=== PATIENT | female | born 1980 | race Caucasian/White ===

== ENCOUNTER 2018-09-19 05:24 | Day surgery (SDC) | payer OTHER ==
[2018-09-18 12:50] VITALS: BMI 51.9
[2018-09-19] MEDS ORDERED: PROPOFOL 20 ML ONE (07:08)
[2018-09-19] MEDS ORDERED: MIDAZOLAM HCL 2 MG/2 ML SINGLE DOSE VIAL ONE (07:08)
[2018-09-19] MEDS ORDERED: ACETAMINOPHEN 325 MG TABLET (FP) PO PRN (08:06)
[2018-09-19] MEDS ORDERED: IBUPROFEN 400 MG TABLET (FP) PO PRN (08:06)
--- NOTE | 2018-09-19 08:06 | HP ---
History & Physical Update - History History: No Change - Physical Physical: No Change - Assessment Assessment: No Change - Plan Plan: No Change
[2018-09-19] MEDS ORDERED: LIDOCAINE HCL/PF 2% SDV 5ML VIAL ONE (09:02)
[2018-09-19] MEDS ORDERED: DEXAMETHASONE SOD PHOSPHATE 4 MG/1 ML VIAL ONE (09:02)
[2018-09-19] MEDS ORDERED: IODINE/POTASSIUM IODIDE 5%/10% 14 ML BOTTLE NR ONE (10:00)
[2018-09-19] MEDS ORDERED: FERRIC SUBSULFATE 500 ML BOTTLE TP ONE (10:00)
[2018-09-19] MEDS ORDERED: ONDANSETRON 4 MG/2 ML VIAL IVPUSH PRN (10:53)
[2018-09-19] MEDS ORDERED: oxyCODONE HCL 5 MG TABLET PO PRN (10:53)
[2018-09-19] MEDS ORDERED: LACTATED RINGERS SOLUTION 1,000 ML IV SCH (11:00)
--- NOTE | 2018-09-19 11:21 | OP ---
Operative Note - Note: Operative Date: 09/19/18 Pre-Operative Diagnosis: Cervical dysplasia. Retained IUD. HPV Operation: Hysteroscopic IUD Removal. Suction DC. LEEP Post-Operative Diagnosis: Same as Pre-op Anesthesia: General Estimated Blood Loss (mls): 50 Operative Report Dictated: Yes
[2018-09-19 15:17] VITALS: BP 127/69; PULSE 68; TEMP 97
--- NOTE | 2018-09-20 14:56 | PATH ---
Surgical Pathology Report Patient Name: ALEXIS NGUYEN [facility]. Rec. #: [id number] /Age/Gender: 1980 (Age: 38) / F Account: [id number] Location: [facility] Taken: 09/19/2018 Received: 09/19/2018 Reported: 09/20/2018 Physicians: Sabine Cunningham M.D. Specimen(s) Received A: IUD B: BX ECTO C: ENDOMETRIAL CURETTINGS Clinical History Cervical dysplasia, retained IUD Final Diagnosis A. IUD, REMOVAL: CONSISTENT WITH INTRAUTERINE DEVICE. GROSS EXAMINATION ONLY. B. ECTOCERVIX, BIOPSY: CERVICAL TISSUE, NEGATIVE FOR DYSPLASIA. C. ENDOMETRIAL CURETTINGS: PREDOMINANTLY BLOOD ADMIXED WITH FRAGMENTS OF ENDOMETRIAL POLYP. SEPARATE FRAGMENTS OF WEAKLY PROLIFERATIVE ENDOMETRIUM WITH FOCAL STROMAL BREAKDOWN. SEPARATE UNREMARKABLE ENDOCERVICAL TISSUE AND SQUAMOUS EPITHELIUM. Electronically Signed Vandana Mensah M.D. Gross Description A. Received in formalin labeled "IUD," is a 3.5 cm in length T. Shaped device with attached string, consistent with an IUD. No soft tissue is present. No sections are submitted, gross only. B. Received in formalin labeled "ecto," is a 2.3 x 1.2 x 0.5 cm pryor-pink, irregular, unoriented portion of soft tissue which is partially surfaced by a pryor-pink mucosa, consistent with a portion of cervix. There is no cervical os present. The specimen is serially sectioned and entirely and sequentially submitted in 3 cassettes. C. Received in formalin labeled "EMC," is a 12.0 x 10.0 x 0.8 cm aggregate of pryor-red soft tissue fragments admixed with blood clot. The formalin is filtered and the specimen is entirely submitted in 26 cassettes. DL/09/19/2018 saudi09/19/2018
--- NOTE | 2018-10-04 22:43 | OP ---
DATE OF OPERATION: 09/19/2018 PREOPERATIVE DIAGNOSIS: Cervical dysplasia, retained intrauterine device and loop electrosurgical excision procedure. POSTOPERATIVE DIAGNOSIS: Cervical dysplasia, retained intrauterine device and loop electrosurgical excision procedure. SURGEON: Sabine Cunningham M.D. ANESTHESIA: General. PROCEDURE: Patient was taken to operating room, placed in dorsal lithotomy position, prepped and draped in usual sterile fashion. Speculum placed in vagina. Anterior lip of cervix grasped with single-toothed tenaculum. The hysteroscope was then inserted, operative hysteroscope and hysteroscopic IUD removal was performed followed by suction D and C. After visualization revealed some adhesions, a lysis of adhesions was done and suction D and C was performed. LEEP excision was then done and submitted to pathology. Cautery of the cervix was then performed followed by Monsel placement. Estimated blood loss was 50 mL. Patient tolerated procedure well and was taken to recovery room in stable condition. SABINE CUNNINGHAM M.D. [id number]
== END 2018-09-19 13:00 | disposition home or self-care (01) ==
LOC: JASU-SURG 05:24
PROVIDERS: ATTEND Obstetrics & Gynecology
PROC: 0UC98ZZ Extirpation of Matter from Uterus, Via Natural or Artificial Opening Endoscopic (ICD-10-PCS; 2018-09-19)
PROC: 0UBC8ZX Excision of Cervix, Via Natural or Artificial Opening Endoscopic, Diagnostic (ICD-10-PCS; principal; 2018-09-19 09:00)
DX: N87.9 Dysplasia of cervix uteri, unspecified (principal); Z97.5 Presence of (intrauterine) contraceptive device
CPT/HCPCS: 88300-TC; 88305-TC; 94760